=== PATIENT | male | born 1955 | race Two or more races ===

== ENCOUNTER 2024-08-11 06:10 | Day surgery (SDC) | payer OTHER ==
[2024-08-11] MEDS ORDERED: MIDAZOLAM HCL 2 MG/2 ML VIAL IV ONE (12:30)
[2024-08-11] MEDS ORDERED: fentaNYL CITRATE 50 MCG/ML AMPUL IV PUSH ONE (12:30)
[2024-08-11] MEDS ORDERED: DIPHENHYDRAMINE HCL 50 MG/ML VIAL 1ML IV ONE (12:30)
== END 2024-08-11 14:24 | disposition home or self-care (01) ==
LOC: AMB-ENDOS 06:10
PROVIDERS: ATTEND Internal Medicine
DX: D12.2 Benign neoplasm of ascending colon (principal); D12.3 Benign neoplasm of transverse colon; D12.5 Benign neoplasm of sigmoid colon; R19.5 Other fecal abnormalities; K63.89 Other specified diseases of intestine; K63.5 Polyp of colon; R63.4 Abnormal weight loss; K20.80 Other esophagitis without bleeding; R11.2 Nausea with vomiting, unspecified; K29.00 Acute gastritis without bleeding; Z88.2 Allergy status to sulfonamides; Z86.0100 Personal history of colon polyps, unspecified

== ENCOUNTER 2024-09-29 23:11 | Emergency (ER) | payer OTHER ==
[~2024-09-29] VITALS: Ht 167.6 cm; Wt 63.5 kg
[2024-09-30] MEDS ORDERED: RINGERS SOLUTION,LACTATED 1,000 ML IV STA (01:09)
[2024-09-30] MEDS ORDERED: FAMOtidine 10 MG/ML (4ML VIAL) IV PUSH STA (01:11)
[2024-09-30] MEDS ORDERED: FAMOTIDINE/PF 20 MG/2 ML VIAL ONE (01:29)
[2024-09-30 02:12] LABS: BASO % 0.4 % (0.1-1.2); EOS # 0.14 (0.04-0.54); EOS % 1.2 % (0.7-7.0); HEMATOCRIT 31.3 % (40.1-51.0); HEMOGLOBIN 11.6 g/dL (13.7-17.5); LYMPH # 1.15 (1.18-3.74); LYMPH % 10.1 % (19.3-53.1); MEAN CORPUSCULAR HEMOGLOBIN 31.8 pg (25.6-32.2); MONO # 1.24 (0.24-0.82); MONO % 10.9 % (4.7-12.5); NEUT % 76.5 % (34.0-71.1); PLATELET COUNT 312 K/uL (163-369); RED BLOOD COUNT 3.65 M/uL (4.63-6.08)
[2024-09-30 02:21] LABS: PH,URINE 6.5 (5.0-8.0); URINE APPEARANCE Cloudy; URINE BILIRRUBIN Negative (NEGATIVE); URINE BLOOD Negative; URINE COLOR Yellow; URINE GLUCOSE Negative (NEGATIVE); URINE KETONE Negative (NEGATIVE); URINE LEUKOCYTE Large; URINE NITRATE Positive; URINE PROTEIN Negative (NEGATIVE); URINE UROBILINOGEN 0.2 E.U./dl
[2024-09-30 02:24] LABS: URINE BACTERIA 9139.3 uL (0.0-1933); URINE EPITHELIAL CELLS 14.4 uL (0.0-38.8); URINE RBC 3.9 uL (0.0-20.8); URINE WBC 136.3 uL (0.0-23.2)
[2024-09-30 02:25] LABS: URINE CAST 0.58 uL (0.0-1.40)
[2024-09-30 02:35] LABS: PROTHROMBIN TIME 10.9 SECONDS (9.0-11.5)
[2024-09-30 02:38] LABS: ALBUMIN 1.4 gm/dL (3.4-5.0); BILIRUBIN TOTAL 0.24 mg/dL (0.3-1.2); CALCIUM 7.6 mg/dL (8.5-10.1); CREATININE SERUM 1.4 mg/dL (0.70-1.30); GFR 49.96; GLOBULINA 3.1 G/DL (2.4-3.5); POTASSIUM 3.71 mEq/L (3.5-5.1); TOTAL PROTEIN 4.5 gm/dL (6.4-8.2)
[2024-09-30 02:42] LABS: INFLUENZA A AG NEGATIVE (NEGATIVE)
[2024-09-30 02:43] LABS: COVID-19 AG NEGATIVE (NEGATIVE)
[2024-09-30] MEDS ORDERED: CIPROFLOXACIN IN 5 % DEXTROSE 400 MG/200 ML PIGGYBAG IV STA (04:59)
[2024-09-30] MEDS ORDERED: CIPROFLOXACIN IN 5 % DEXTROSE 400 MG/200 ML PIGGYBAG IV ONE (05:52)
== END 2024-09-30 06:49 | disposition home or self-care (01) ==
LOC: ER 23:11
DX: R53.1 Weakness (principal); R55 Syncope and collapse; E86.0 Dehydration; Z20.822 Contact with and (suspected) exposure to COVID-19; Z88.2 Allergy status to sulfonamides
CPT/HCPCS: 36415; 70450; 96365; 99284; J0744; J3490

== ENCOUNTER 2024-10-12 17:29 | Inpatient (IN) | payer OTHER ==
[~2024-10-12] VITALS: Ht 167.6 cm; Wt 74.8 kg
[2024-10-12] MEDS ORDERED: HYDRALAZINE HC100 MG PO (17:40)
[2024-10-12] MEDS ORDERED: COZAAR100 MG PO (17:41)
[2024-10-12] MEDS ORDERED: NIFEDIPINE ER30 M1 PO (17:41)
[2024-10-12] MEDS ORDERED: TOPROL XL50 M1 PO (17:41)
[2024-10-12] MEDS ORDERED: INSPRA25 MG PO (17:41)
[2024-10-12] MEDS ORDERED: CARDURA XL4 MG PO (17:42)
[2024-10-12] MEDS ORDERED: 0.9 % SODIUM CHLORIDE 1,000 ML IV SCH ×2 (18:00→22:15)
[2024-10-12 18:54] LABS: BASO % 0.4 % (0.1-1.2); EOS # 0.06 (0.04-0.54); EOS % 0.6 % (0.7-7.0); HEMATOCRIT 30.5 % (40.1-51.0); HEMOGLOBIN 11.4 g/dL (13.7-17.5); LYMPH # 0.96 (1.18-3.74); LYMPH % 9.3 % (19.3-53.1); MEAN CORPUSCULAR HEMOGLOBIN 31.8 pg (25.6-32.2); MONO # 0.84 (0.24-0.82); MONO % 8.1 % (4.7-12.5); NEUT # 8.23 (1.56-6.13); NEUT % 79.4 % (34.0-71.1); PLATELET COUNT 349 K/uL (163-369); RED BLOOD COUNT 3.59 M/uL (4.63-6.08); RED CELL DISTRIBUTION WIDTH 13.6 % (11.6-14.4)
[2024-10-12 19:15] LABS: PH,URINE 6.5 (5.0-8.0); URINE APPEARANCE Cloudy; URINE BILIRRUBIN Negative (NEGATIVE); URINE BLOOD Negative; URINE COLOR Yellow; URINE GLUCOSE Negative (NEGATIVE); URINE KETONE Negative (NEGATIVE); URINE LEUKOCYTE Large; URINE NITRATE Negative; URINE PROTEIN Trace (NEGATIVE); URINE UROBILINOGEN 0.2 E.U./dl
[2024-10-12 19:19] LABS: URINE CAST 6.92 uL (0.0-1.40); URINE EPITHELIAL CELLS 8.3 uL (0.0-38.8)
[2024-10-12 19:50] LABS: URINE BACTERIA > 9821.5 uL (0.0-1933)
[2024-10-12 19:51] LABS: URINE CRYSTALS FEW /HPF; URINE MUCUS SCANT
[2024-10-12 20:06] LABS: ALBUMIN 1.4 gm/dL (3.4-5.0); BILIRUBIN TOTAL 0.37 mg/dL (0.3-1.2); BILIRUBIN,CONJUGATED 0.13 mg/dL (0.0-0.2); BILIRUBIN,UNCONJUGATED 0.24 mg/dL (0.0-0.6); CALCIUM 7.8 mg/dL (8.5-10.1); CREATININE SERUM 2.83 mg/dL (0.70-1.30); GFR 22.17; GLOBULINA 3.3 G/DL (2.4-3.5); POTASSIUM 4.84 mEq/L (3.5-5.1); TOTAL PROTEIN 4.7 gm/dL (6.4-8.2)
[2024-10-12] MEDS ORDERED: CEFTRIAXONE SODIUM 2,000 MG in 0.9 % SODIUM CHLORIDE 100 ML IV SCH (22:07)
[2024-10-12] MEDS ORDERED: FAMOTIDINE/PF 20 MG in 0.9 % SODIUM CHLORIDE 8 ML IV PUSH SCH (22:07)
[2024-10-12] MEDS ORDERED: ACETAMINOPHEN 500 MG GEL..CAP PO PRN (22:15)
[2024-10-12] MEDS ORDERED: ONDANSETRON HCL 4 MG in 0.9 % SODIUM CHLORIDE 50 ML IV PRN (22:15)
[2024-10-13 01:50] VITALS: BP 109/59
[2024-10-13 02:26] LABS: INR 1.07; PARTIAL THROMBOPLASTIN TIME 31.7 SECONDS (22.0-34.0); PROTHROMBIN TIME 11.6 SECONDS (9.0-11.5)
[2024-10-13 04:00] VITALS: BP 112/79; O2SAT 96
[2024-10-13 08:41] VITALS: BP 108/71
[2024-10-13] MEDS ORDERED: METOPROLOL SUCCINATE 50 MG TAB.SR.24H PO SCH (09:00)
[2024-10-13] MEDS ORDERED: NIFEDIPINE 30 MG TAB.SA.OSM PO SCH (09:00)
[2024-10-13] MEDS ORDERED: ENOXAPARIN SODIUM 30 MG/0.3 ML SYRINGE SUBCUTANEO SCH (09:00)
[2024-10-13 17:50] VITALS: BP 146/80; O2SAT 96
[2024-10-13] MEDS ORDERED: FUROsemide 20 MG/2 ML VIAL IV SCH (21:00)
[2024-10-14 00:41] VITALS: BP 124/76; O2SAT 95
[2024-10-14 06:32] LABS: BASO % 0.4 % (0.1-1.2); EOS # 0.14 (0.04-0.54); EOS % 1.2 % (0.7-7.0); HEMOGLOBIN 9.9 g/dL (13.7-17.5); LYMPH # 1.38 (1.18-3.74); LYMPH % 11.9 % (19.3-53.1); MEAN CORPUSCULAR HEMOGLOBIN 31.9 pg (25.6-32.2); MONO # 1.07 (0.24-0.82); MONO % 9.2 % (4.7-12.5); NEUT % 74.4 % (34.0-71.1); PLATELET COUNT 335 K/uL (163-369); RED CELL DISTRIBUTION WIDTH 13.4 % (11.6-14.4)
[2024-10-14 06:44] LABS: HEMATOCRIT 26.5 % (40.1-51.0)
[2024-10-14 07:24] LABS: ALBUMIN 1.3 gm/dL (3.4-5.0); BILIRUBIN TOTAL 0.15 mg/dL (0.3-1.2); CALCIUM 7.6 mg/dL (8.5-10.1); CREATININE SERUM 2.45 mg/dL (0.70-1.30); GFR 26.19; GLOBULINA 2.6 G/DL (2.4-3.5); MAGNESIUM 1.6 mg/dL (1.8-2.4); PHOSPHOROUS 3.1 mg/dL (2.5-4.9); POTASSIUM 3.83 mEq/L (3.5-5.1); TOTAL PROTEIN 3.9 gm/dL (6.4-8.2)
[2024-10-14 09:48] VITALS: BP 137/86
[2024-10-14 18:30] VITALS: BP 120/75; O2SAT 98
[2024-10-14] MEDS ORDERED: MAGNESIUM SULFATE 1,000 MG in 0.9 % SODIUM CHLORIDE 50 ML IV ONE (23:00)
[2024-10-15 01:17] VITALS: BP 130/77; O2SAT 97
[2024-10-15 08:03] LABS: ALBUMIN 1.4 gm/dL (3.4-5.0); CALCIUM 7.6 mg/dL (8.5-10.1); CREATININE SERUM 2.08 mg/dL (0.70-1.30); GFR 31.64; MAGNESIUM 1.7 mg/dL (1.8-2.4); PHOSPHOROUS 2.8 mg/dL (2.5-4.9); POTASSIUM 3.35 mEq/L (3.5-5.1)
[2024-10-15 08:13] LABS: T4 TOTAL 7.4 UG/DL (4.5-12.1); TSH 1.38 uIU/mL (0.358-3.74)
[2024-10-15 09:08] LABS: FOLLICLE STIMULATING HORMONE 6.7 mIU/mL (1.5-12.4); LEUTEINIZING HORMONE 6.4 mIU/mL (1.7-8.6); PROLACTIN 18.2 ng/mL (3.6-25.2)
[2024-10-15 10:06] VITALS: BP 151/89; O2SAT 98
[2024-10-15 16:30] VITALS: BP 127/83; O2SAT 99
[2024-10-15] MEDS ORDERED: POTASSIUM CHLORIDE IN WATER 40 MEQ/100 ML PIGGYBAG IV ONE (21:30)
[2024-10-15] MEDS ORDERED: MAGNESIUM SULFATE 1,000 MG in 0.9 % SODIUM CHLORIDE 50 ML IV ONE (21:30)
[2024-10-16 01:21] VITALS: BP 97/60; O2SAT 97
[2024-10-16 07:53] LABS: ALBUMIN 1.4 gm/dL (3.4-5.0); BILIRUBIN TOTAL 0.13 mg/dL (0.3-1.2); CALCIUM 7.6 mg/dL (8.5-10.1); CREATININE SERUM 1.77 mg/dL (0.70-1.30); GFR 38.11; GLOBULINA 2.9 G/DL (2.4-3.5); MAGNESIUM 2.1 mg/dL (1.8-2.4); POTASSIUM 3.41 mEq/L (3.5-5.1); TOTAL PROTEIN 4.3 gm/dL (6.4-8.2)
[2024-10-16 09:56] VITALS: BP 120/73; O2SAT 99
[2024-10-16 11:10] LABS: URIC ACID 4.6 mg/dL (3.5-8.5)
[2024-10-16 11:59] LABS: URINE APPEARANCE Clear; URINE BILIRRUBIN Negative (NEGATIVE); URINE BLOOD Negative; URINE COLOR Yellow; URINE GLUCOSE Negative (NEGATIVE); URINE KETONE Negative (NEGATIVE); URINE LEUKOCYTE Moderate; URINE NITRATE Negative; URINE PROTEIN Negative (NEGATIVE); URINE UROBILINOGEN 0.2 E.U./dl
[2024-10-16 12:03] LABS: URINE BACTERIA 1271.6 uL (0.0-1933); URINE EPITHELIAL CELLS 11.8 uL (0.0-38.8); URINE RBC 2.3 uL (0.0-20.8); URINE WBC 158.1 uL (0.0-23.2)
[2024-10-16 17:58] VITALS: BP 126/77
[2024-10-17 00:23] VITALS: BP 148/75; O2SAT 95
[2024-10-17] MEDS ORDERED: POTASSIUM CHLORIDE IN WATER 100 ML IV SCH (01:30)
[2024-10-17 06:54] LABS: ALBUMIN 1.4 gm/dL (3.4-5.0); CALCIUM 7.6 mg/dL (8.5-10.1); CREATININE SERUM 1.68 mg/dL (0.70-1.30); GFR 40.48; MAGNESIUM 1.8 mg/dL (1.8-2.4); PHOSPHOROUS 2.9 mg/dL (2.5-4.9); POTASSIUM 3.46 mEq/L (3.5-5.1)
[2024-10-17 08:32] VITALS: BP 156/82
[2024-10-17] MEDS ORDERED: MEROPENEM 500 MG/VIAL VIAL IV NR (14:00)
[2024-10-17] MEDS ORDERED: CLOTRIMAZOLE 10 MG TROCHE MM SCH (17:00)
[2024-10-17 18:20] VITALS: BP 132/85
[2024-10-17] MEDS ORDERED: MEROPENEM 500 MG/VIAL VIAL IV SCH (21:00)
[2024-10-17] MEDS ORDERED: BISACODYL 5 MG TABLET.EC PO STA (23:07)
[2024-10-18 00:43] VITALS: BP 129/63; O2SAT 98
[2024-10-18 08:38] VITALS: BP 153/85; O2SAT 95
[2024-10-18] MEDS ORDERED: FUROsemide 20 MG/2 ML VIAL IV SCH (09:00)
[2024-10-18] MEDS ORDERED: BISACODYL 5 MG TABLET.EC PO SCH (09:00)
[2024-10-18 09:13] LABS: BASO % 1.3 % (0.1-1.2); EOS # 0.33 (0.04-0.54); EOS % 2.9 % (0.7-7.0); HEMOGLOBIN 9.2 g/dL (13.7-17.5); LYMPH # 1.17 (1.18-3.74); LYMPH % 10.3 % (19.3-53.1); MEAN CORPUSCULAR HEMOGLOBIN 31.4 pg (25.6-32.2); MONO # 1.13 (0.24-0.82); NEUT # 8.29 (1.56-6.13); NEUT % 73.4 % (34.0-71.1); PLATELET COUNT 400 K/uL (163-369); RED BLOOD COUNT 2.93 M/uL (4.63-6.08)
[2024-10-18 09:21] LABS: HEMATOCRIT 25.5 % (40.1-51.0)
[2024-10-18 09:55] LABS: ALBUMIN 1.5 gm/dL (3.4-5.0); BILIRUBIN TOTAL 0.26 mg/dL (0.3-1.2); CALCIUM 7.8 mg/dL (8.5-10.1); CREATININE SERUM 1.52 mg/dL (0.70-1.30); GFR 45.43; MAGNESIUM 1.8 mg/dL (1.8-2.4); PHOSPHOROUS 2.8 mg/dL (2.5-4.9); POTASSIUM 3.31 mEq/L (3.5-5.1); TOTAL PROTEIN 4.5 gm/dL (6.4-8.2)
[2024-10-18] MEDS ORDERED: POTASSIUM CHLORIDE 20MEQ/100ML H2O PB IV NR (14:15)
[2024-10-18 17:31] VITALS: BP 169/93
[2024-10-18] MEDS ORDERED: VITAMIN B COMPLEX 1 EACH PO NR (19:00)
[2024-10-18] MEDS ORDERED: Cyanocobalamin/Mecobalamin 1 TAB.SL SL NR (19:00)
[2024-10-18] MEDS ORDERED: SOD FERRIC GLUC COMPLX/SUCROSE 62.5 MG in 0.9 % SODIUM CHLORIDE 50 ML IV SCH (21:00)
[2024-10-19 00:23] VITALS: BP 107/72; O2SAT 98
[2024-10-19 08:21] VITALS: BP 126/65; O2SAT 97
[2024-10-19] MEDS ORDERED: Cyanocobalamin/Mecobalamin 1 TAB.SL SL SCH (09:00)
[2024-10-19] MEDS ORDERED: VITAMIN B COMPLEX 1 EACH PO SCH (09:00)
[2024-10-19 17:15] VITALS: BP 155/81
[2024-10-19 18:41] LABS: PH,URINE 7.5 (5.0-8.0); URINE APPEARANCE Cloudy; URINE BACTERIA 600.9 uL (0.0-1933); URINE BILIRRUBIN Negative (NEGATIVE); URINE BLOOD Small; URINE COLOR Yellow; URINE EPITHELIAL CELLS 2.8 uL (0.0-38.8); URINE GLUCOSE Negative (NEGATIVE); URINE KETONE Negative (NEGATIVE); URINE LEUKOCYTE Large; URINE NITRATE Negative; URINE PROTEIN 30 (NEGATIVE); URINE RBC 11.7 uL (0.0-20.8); URINE UROBILINOGEN 0.2 E.U./dl; URINE WBC 3089.9 uL (0.0-23.2)
[2024-10-19 18:44] LABS: URINE CAST 1.32 uL (0.0-1.40)
[2024-10-20 01:40] VITALS: BP 129/81
[2024-10-20 06:16] LABS: BASO % 0.9 % (0.1-1.2); EOS # 0.33 (0.04-0.54); EOS % 2.9 % (0.7-7.0); LYMPH # 1.19 (1.18-3.74); LYMPH % 10.3 % (19.3-53.1); MEAN CORPUSCULAR HEMOGLOBIN 31.7 pg (25.6-32.2); MONO # 1.02 (0.24-0.82); MONO % 8.8 % (4.7-12.5); NEUT # 8.66 (1.56-6.13); NEUT % 75.1 % (34.0-71.1); PLATELET COUNT 411 K/uL (163-369); RED BLOOD COUNT 2.81 M/uL (4.63-6.08); RED CELL DISTRIBUTION WIDTH 14.5 % (11.6-14.4)
[2024-10-20 06:43] LABS: ALBUMIN 1.6 gm/dL (3.4-5.0); BILIRUBIN TOTAL 0.28 mg/dL (0.3-1.2); CALCIUM 8.1 mg/dL (8.5-10.1); CREATININE SERUM 1.45 mg/dL (0.70-1.30); GFR 47.97; GLOBULINA 3.1 G/DL (2.4-3.5); MAGNESIUM 1.7 mg/dL (1.8-2.4); PHOSPHOROUS 2.7 mg/dL (2.5-4.9); POTASSIUM 3.06 mEq/L (3.5-5.1); TOTAL PROTEIN 4.7 gm/dL (6.4-8.2)
[2024-10-20 07:00] LABS: HEMATOCRIT 24.5 % (40.1-51.0); HEMOGLOBIN 8.9 g/dL (13.7-17.5)
[2024-10-20 09:13] VITALS: BP 130/72; O2SAT 99
[2024-10-20] MEDS ORDERED: FUROsemide 20 MG/2 ML VIAL IV SCH (12:15)
[2024-10-20] MEDS ORDERED: AMINO ACIDS/PROTEIN HYDROLYS 30 ML BLIST.PACK PO SCH (13:00)
[2024-10-20] MEDS ORDERED: POTASSIUM CHLORIDE 20MEQ/100ML H2O PB IV SCH (13:00)
[2024-10-20] MEDS ORDERED: MAGNESIUM HYDROXIDE 30 ML BLIST.PACK PO NR (16:00)
[2024-10-20] MEDS ORDERED: MINERAL OIL 30 ML BLIST.PACK PO NR (16:00)
[2024-10-20] MEDS ORDERED: MAGNESIUM SULFATE/D5W 100 ML IV NR (16:00)
[2024-10-20] MEDS ORDERED: LACTULOSE 20 G/30 ML BLIST.PACK PO NR (16:00)
[2024-10-20 17:59] VITALS: BP 163/91; O2SAT 99
[2024-10-21 02:56] VITALS: BP 140/70
[2024-10-21 09:47] VITALS: BP 171/89; O2SAT 97
[2024-10-21 12:31] LABS: BASO % 0.5 % (0.1-1.2); EOS # 0.07 (0.04-0.54); EOS % 0.6 % (0.7-7.0); HEMATOCRIT 32.5 % (40.1-51.0); HEMOGLOBIN 11.7 g/dL (13.7-17.5); LYMPH # 0.93 (1.18-3.74); LYMPH % 7.8 % (19.3-53.1); MEAN CORPUSCULAR HEMOGLOBIN 31.4 pg (25.6-32.2); MONO # 1.11 (0.24-0.82); MONO % 9.4 % (4.7-12.5); NEUT # 9.54 (1.56-6.13); NEUT % 80.4 % (34.0-71.1); PLATELET COUNT 348 K/uL (163-369); RED BLOOD COUNT 3.73 M/uL (4.63-6.08); RED CELL DISTRIBUTION WIDTH 14.7 % (11.6-14.4)
[2024-10-21 18:29] VITALS: BP 149/93
[2024-10-22 02:17] VITALS: BP 120/82; O2SAT 97
== END 2024-10-22 08:50 | disposition home or self-care (01) | DRG 689 ==
LOC: EMR PED 17:29 → ER 17:31 → MEDJ 23:20
PROVIDERS: General Practice; Internal Medicine; Internal Medicine Endocrinology, Diabetes & Metabolism; Internal Medicine Infectious Disease; ADMIT Internal Medicine; ATTEND Internal Medicine
PROC: B030ZZZ Magnetic Resonance Imaging (MRI) of Brain (ICD-10-PCS; 2024-10-12)
PROC: 8E0ZXY6 Isolation (ICD-10-PCS; 2024-10-15)
PROC: 30233N1 Transfusion of Nonautologous Red Blood Cells into Peripheral Vein, Percutaneous Approach (ICD-10-PCS; principal; 2024-10-20)
DX: N39.0 Urinary tract infection, site not specified (principal); G93.41 Metabolic encephalopathy; E87.1 Hypo-osmolality and hyponatremia; N17.9 Acute kidney failure, unspecified; B37.0 Candidal stomatitis; E86.0 Dehydration; D64.89 Other specified anemias; E87.6 Hypokalemia; C67.9 Malignant neoplasm of bladder, unspecified; M62.50 Muscle wasting and atrophy, not elsewhere classified, unspecified site; I12.9 Hypertensive chronic kidney disease with stage 1 through stage 4 chronic kidney disease, or unspecified chronic kidney disease; N18.9 Chronic kidney disease, unspecified; Z88.2 Allergy status to sulfonamides; Z92.25 Personal history of immunosuppression therapy; Z74.01 Bed confinement status; B96.20 Unspecified Escherichia coli [E. coli] as the cause of diseases classified elsewhere
CPT/HCPCS: 70544

== ENCOUNTER 2024-12-08 13:23 | Inpatient (IN) | payer OTHER ==
[~2024-12-08] VITALS: Ht 167.6 cm; Wt 60.3 kg
[~2024-12-08 13:23] MED LIST: CARDURA XL4 MG PO; COZAAR100 MG PO; HYDRALAZINE HC100 MG PO; INSPRA25 MG PO; NIFEDIPINE ER30 M1 PO; TOPROL XL50 M1 PO
--- NOTE | 2024-12-08 13:47 | NUR ---
PTE CON REFERIDO DE PASCUAL CARDIOLOGO POR ANEMIA Y SODIUM BAJO SE LE LEONID S/V Y SE ACOMODA.
[2024-12-08] MEDS ORDERED: 0.9 % SODIUM CHLORIDE 1,000 ML IV SCH ×2 (14:11→18:15)
[2024-12-08 14:53] LABS: BASO % 0.9 % (0.1-1.2); EOS # 0.14 (0.04-0.54); EOS % 1.8 % (0.7-7.0); LYMPH # 1.27 (1.18-3.74); LYMPH % 15.9 % (19.3-53.1); MEAN PLATELET VOLUME 9.80 fl (9.4-12.4); MONO # 0.90 (0.24-0.82); MONO % 11.3 % (4.7-12.5); NEUT # 5.50 (1.56-6.13); NEUT % 68.7 % (34.0-71.1); RED CELL DISTRIBUTION WIDTH 15.6 % (11.6-14.4)
--- NOTE | 2024-12-08 14:55 | NUR ---
SE ORIENTA PTE SOBRE TX MEDICO Y EL MISMO REFIERE ENTENDER Y ACEPTAR. SE CANALIZA Y SE COLECTAN MUESTRAS DE LAB
[2024-12-08 15:23] LABS: ALT/SGPT 15.0 U/L (12-78); AST/SGOT 10.0 U/L (15-37); BILIRUBIN TOTAL 0.33 mg/dL (0.3-1.2); BUN CREA RATIO 16.0 (7.0-25.0); CREATININE SERUM 1.79 mg/dL (0.70-1.30); GFR 37.62; GLOBULINA 4.1 G/DL (2.4-3.5); GLUCOSE FASTING 147.0 mg/dL (65-100); OSMOLALITY SERUM 282.0 MOSM/KG (275-295)
[2024-12-08 15:35] LABS: URINE APPEARANCE Clear; URINE BILIRRUBIN Negative (NEGATIVE); URINE BLOOD Negative; URINE COLOR Yellow; URINE GLUCOSE Negative (NEGATIVE); URINE KETONE Negative (NEGATIVE); URINE LEUKOCYTE Small; URINE NITRATE Negative; URINE PROTEIN Negative (NEGATIVE); URINE UROBILINOGEN 0.2 E.U./dl
[2024-12-08 15:39] LABS: URINE BACTERIA 2586.7 uL (0.0-1933); URINE EPITHELIAL CELLS 3.5 uL (0.0-38.8); URINE WBC 34.7 uL (0.0-23.2)
[2024-12-08 15:43] LABS: URINE CAST 0.14 uL (0.0-1.40); URINE RBC 1.1 uL (0.0-20.8)
[2024-12-08 15:50] LABS: COVID-19 AG NEGATIVE (NEGATIVE)
[2024-12-08] MEDS ORDERED: POTASSIUM CHLORIDE/NACL 0.9% 1,000 ML IV NR (16:05)
[2024-12-08] MEDS ORDERED: POTASSIUM CHLORIDE IN WATER 100 ML IV SCH (18:10)
[2024-12-08] MEDS ORDERED: FAMOTIDINE/PF 20 MG in 0.9 % SODIUM CHLORIDE 8 ML IV PUSH SCH (18:11)
[2024-12-08] MEDS ORDERED: ONDANSETRON HCL 4 MG in 0.9 % SODIUM CHLORIDE 50 ML IV PRN (18:15)
[2024-12-08] MEDS ORDERED: ACETAMINOPHEN 500 MG GEL..CAP PO PRN (18:15)
[2024-12-08 19:06] VITALS: BP 190/90
[2024-12-08] MEDS ORDERED: ENALAPRILAT DIHYDRATE 2.5 MG/2 ML VIAL IV ONE (19:45)
[2024-12-08 19:46] VITALS: BP 190/90
[2024-12-08 19:48] LABS: INR 1.1
[2024-12-08 21:45] VITALS: BP 190/92
[2024-12-08] MEDS ORDERED: AMLODIPINE BESYLATE 5 MG TABLET PO ONE (22:00)
[2024-12-08 22:21] VITALS: BP 204/97; O2SAT 98
[2024-12-09] VITALS (9 sets, daily range): BP systolic 173–197; BP diastolic 84–95; O2SAT 97–100
[2024-12-09] MEDS ORDERED: LOSARTAN POTASSIUM 25 MG TABLET PO SCH (09:00)
[2024-12-09] MEDS ORDERED: AMINO ACIDS/PROTEIN HYDROLYS 30 ML BLIST.PACK PO SCH (17:00)
[2024-12-09 22:10] LABS: BASO % 0.9 % (0.1-1.2); EOS # 0.56 (0.04-0.54); EOS % 6.2 % (0.7-7.0); LYMPH # 1.54 (1.18-3.74); LYMPH % 17.0 % (19.3-53.1); MEAN PLATELET VOLUME 9.70 fl (9.4-12.4); MONO # 1.14 (0.24-0.82); NEUT # 5.63 (1.56-6.13); NEUT % 62.0 % (34.0-71.1); RED CELL DISTRIBUTION WIDTH 15.6 % (11.6-14.4)
[2024-12-09 22:22] LABS: MONO % 12.6 % (4.7-12.5)
[2024-12-09 22:53] LABS: BUN CREA RATIO 17.0 (7.0-25.0); CREATININE SERUM 1.49 mg/dL (0.70-1.30); GFR 46.49; GLUCOSE FASTING 110.0 mg/dL (65-100); OSMOLALITY SERUM 289.0 MOSM/KG (275-295)
[2024-12-09] MEDS ORDERED: MAGNESIUM SULFATE IN WATER 50 ML IV ONE (23:45)
[2024-12-10] VITALS (9 sets, daily range): BP systolic 160–186; BP diastolic 89–95; O2SAT 97–100
[2024-12-10] MEDS ORDERED: POTASSIUM CHLORIDE IN WATER 40 MEQ/100 ML PIGGYBAG IV ONE
[2024-12-10 08:14] LABS: BASO % 0.8 % (0.1-1.2); EOS # 0.70 (0.04-0.54); EOS % 9.2 % (0.7-7.0); LYMPH # 1.33 (1.18-3.74); LYMPH % 17.4 % (19.3-53.1); MEAN PLATELET VOLUME 10.30 fl (9.4-12.4); MONO # 1.08 (0.24-0.82); NEUT # 4.36 (1.56-6.13); NEUT % 57.1 % (34.0-71.1); RED CELL DISTRIBUTION WIDTH 15.9 % (11.6-14.4)
[2024-12-10 08:18] LABS: MONO % 14.1 % (4.7-12.5)
[2024-12-10] MEDS ORDERED: LOSARTAN POTASSIUM 50 MG TABLET PO SCH (09:00)
[2024-12-10] MEDS ORDERED: LOSARTAN POTASSIUM 25 MG TABLET PO SCH (09:00)
[2024-12-10] MEDS ORDERED: CEFTRIAXONE SODIUM 1,000 MG VIAL IV SCH (09:00)
[2024-12-10 14:03] LABS: ALT/SGPT 14.0 U/L (12-78); AST/SGOT 9.0 U/L (15-37); BILIRUBIN TOTAL 0.46 mg/dL (0.3-1.2); BUN CREA RATIO 19.0 (7.0-25.0); CREATININE SERUM 1.45 mg/dL (0.70-1.30); GFR 47.97; GLOBULINA 3.8 G/DL (2.4-3.5); GLUCOSE FASTING 84.0 mg/dL (65-100); OSMOLALITY SERUM 289.0 MOSM/KG (275-295)
[2024-12-10] MEDS ORDERED: POTASSIUM CHLORIDE IN WATER 40 MEQ/100 ML PIGGYBAG IV SCH (19:44)
[2024-12-11 00:32] VITALS: O2SAT 99
[2024-12-11 04:47] VITALS: O2SAT 100
[2024-12-11 07:30] VITALS: BP 186/93
[2024-12-11 08:08] VITALS: O2SAT 100
[2024-12-11 08:14] LABS: BUN CREA RATIO 24.0 (7.0-25.0); CREATININE SERUM 1.3 mg/dL (0.70-1.30); GFR 54.42; GLUCOSE FASTING 68.0 mg/dL (65-100); OSMOLALITY SERUM 292.0 MOSM/KG (275-295)
[2024-12-11 12:54] VITALS: O2SAT 100
[2024-12-11] MEDS ORDERED: POTASSIUM CHLORIDE IN WATER 40 MEQ/100 ML PIGGYBAG IV ONE (13:15)
== END 2024-12-11 14:45 | disposition home or self-care (01) | DRG 683 ==
LOC: ER 13:40 → MEDI 18:22
PROVIDERS: Emergency Medicine; General Practice; Internal Medicine; ADMIT Internal Medicine; ATTEND Internal Medicine
PROC: 4A12X4Z Monitoring of Cardiac Electrical Activity, External Approach (ICD-10-PCS; principal; 2024-12-09)
PROC: 30233N1 Transfusion of Nonautologous Red Blood Cells into Peripheral Vein, Percutaneous Approach (ICD-10-PCS; 2024-12-09)
DX: N17.9 Acute kidney failure, unspecified (principal); N39.0 Urinary tract infection, site not specified; R63.0 Anorexia; E87.6 Hypokalemia; D64.9 Anemia, unspecified; I10 Essential (primary) hypertension

== ENCOUNTER 2025-02-04 13:44 | Inpatient (IN) | payer OTHER ==
[~2025-02-04] VITALS: Ht 167.6 cm; Wt 61.7 kg
--- NOTE | 2025-02-04 14:38 | NUR ---
PACIENTE ALERTA Y ORIENTADO X 3, ACOMPANADO DE ESPOSA. ESTA REFIERE FUE LLAMADA DE LABORATORIO PARA LLEVAR A ER POR RESULTADO DE LAB ALTERADO. REFIERE ESTELLE A PRESENTADO PRESION BAJA. 154/68 AL REALIZAR TRIAGE.
[2025-02-04] MEDS ORDERED: FAMOtidine 10 MG/ML (4ML VIAL) IV ONE (15:15)
[2025-02-04] MEDS ORDERED: 0.9 % SODIUM CHLORIDE 1,000 ML IV ONE (15:30)
[2025-02-04] MEDS ORDERED: FAMOTIDINE/PF 20 MG/2 ML VIAL ONE (15:57)
--- NOTE | 2025-02-04 16:28 | NUR ---
SE ORIENTA PTE SOBRE TX MEDICO REFIERE ENTENDER Y ACEPTAR MARYLOU MAHAJAN LEONID MUESTRAS DE LABORATORIOS Y REALIZA VENOPUNCION EN MANO DERECHA BAJO MEDIDAS ASEPTICAS TONY ORDEN MEDICA. MARYLOU CHRISTIANSON ADMINISTRA MEDICAMENTO TONY ORDEN MEDICA IV BAJO MEDIDAS ASEPTICAS. PTE ESTA UBICADO EN AREA DE OBSERVACION EN CAMA 11 CON BARANDAS ELEVADAS.
[2025-02-04 17:05] LABS: BASO % 0.5 % (0.1-1.2); EOS # 0.26 (0.04-0.54); EOS % 4.2 % (0.7-7.0); LYMPH # 1.32 (1.18-3.74); LYMPH % 21.3 % (19.3-53.1); MEAN PLATELET VOLUME 10.20 fl (9.4-12.4); MONO # 0.66 (0.24-0.82); MONO % 10.7 % (4.7-12.5); NEUT # 3.89 (1.56-6.13); NEUT % 62.8 % (34.0-71.1); RED CELL DISTRIBUTION WIDTH 15.7 % (11.6-14.4)
[2025-02-04 17:14] LABS: URINE APPEARANCE Clear; URINE BILIRRUBIN Negative (NEGATIVE); URINE BLOOD Negative; URINE COLOR Yellow; URINE GLUCOSE Negative (NEGATIVE); URINE KETONE Negative (NEGATIVE); URINE LEUKOCYTE Large; URINE NITRATE Negative; URINE PROTEIN 30 (NEGATIVE); URINE UROBILINOGEN 0.2 E.U./dl
[2025-02-04 17:17] LABS: INR 1.11
[2025-02-04 17:20] LABS: URINE BACTERIA 1871.7 uL (0.0-1933); URINE EPITHELIAL CELLS 8.4 uL (0.0-38.8); URINE RBC 6.4 uL (0.0-20.8); URINE WBC 230.7 uL (0.0-23.2)
[2025-02-04 17:28] LABS: ALT/SGPT 24.0 U/L (12-78); AST/SGOT 18.0 U/L (15-37); BILIRUBIN TOTAL 0.39 mg/dL (0.3-1.2); CREATININE SERUM 2.82 mg/dL (0.70-1.30); GFR 22.27; GLOBULINA 3.9 G/DL (2.4-3.5); GLUCOSE FASTING 117.0 mg/dL (65-100)
[2025-02-04 17:30] LABS: BUN CREA RATIO 32.0 (7.0-25.0); OSMOLALITY SERUM 300.0 MOSM/KG (275-295)
[2025-02-04 17:42] LABS: URINE CAST 1.02 uL (0.0-1.40)
[2025-02-04] MEDS ORDERED: PANTOPRAZOLE SODIUM 40 MG in 0.9 % SODIUM CHLORIDE 8 ML IV PUSH SCH (18:59)
[2025-02-04 19:10] VITALS: BP 178/76; O2SAT 99
[2025-02-04] MEDS ORDERED: SODIUM CHLORIDE 0.45 % 1,000 ML IV SCH (19:15)
[2025-02-04] MEDS ORDERED: METOPROLOL TARTRATE 50 MG TABLET PO SCH (19:26)
[2025-02-04] MEDS ORDERED: LABETALOL HCL 100 MG/20 ML ML IV PUSH PRN (19:30)
[2025-02-04] MEDS ORDERED: HEPARIN SODIUM,PORCINE 5,000 UNITS/ML VIAL SUBCUTANEO SCH (21:00)
[2025-02-04 22:00] VITALS: BP 192/87; O2SAT 100
[2025-02-04 22:42] LABS: ABG PH 7.219 (7.35-7.45)
[2025-02-04 22:43] LABS: ABG PO2 134.5 mmHg (80-100)
[2025-02-04 22:44] LABS: BICARBONATE 6.9 mmol/l (23-25); o2 21 %
[2025-02-04 22:49] VITALS: BP 192/87; O2SAT 100
[2025-02-04 23:44] VITALS: O2SAT 100
[2025-02-05] VITALS (9 sets, daily range): BP systolic 138–160; BP diastolic 77–81; O2SAT 100
[2025-02-05 08:40] LABS: ALT/SGPT 21.0 U/L (12-78); AST/SGOT 17.0 U/L (15-37); BILIRUBIN TOTAL 0.47 mg/dL (0.3-1.2); CREATININE SERUM 2.47 mg/dL (0.70-1.30); GFR 25.94; GLOBULINA 3.5 G/DL (2.4-3.5); GLUCOSE FASTING 96.0 mg/dL (65-100)
[2025-02-05 10:14] LABS: BUN CREA RATIO 35.0 (7.0-25.0); OSMOLALITY SERUM 300.0 MOSM/KG (275-295)
[2025-02-05] MEDS ORDERED: CEFTRIAXONE SODIUM 1,000 MG in DEXTROSE 5 % IN WATER 100 ML IV NR (12:00)
[2025-02-05] MEDS ORDERED: CITRIC ACID/SODIUM CITRATE 30 ML BLIST.PACK PO SCH (13:00)
[2025-02-05] MEDS ORDERED: CEFTRIAXONE SODIUM 1,000 MG VIAL ONE (19:18)
[2025-02-05] MEDS ORDERED: SODIUM BICARBONATE 50MEQ/50ML VIAL IV ONE ×3 (19:50→23:21)
[2025-02-05] MEDS ORDERED: SODIUM BICARBONATE 1 MEQ/ML DISP.SYRIN 50ML IV SCH (19:55)
[2025-02-05] MEDS ORDERED: CEFTRIAXONE SODIUM 1,000 MG in DEXTROSE 5 % IN WATER 100 ML IV SCH (21:00)
[2025-02-06] VITALS (8 sets, daily range): BP systolic 139–182; BP diastolic 69–82; O2SAT 95–100
[2025-02-06 06:50] LABS: ALT/SGPT 20.0 U/L (12-78); AST/SGOT 18.0 U/L (15-37); BILIRUBIN TOTAL 0.34 mg/dL (0.3-1.2); BUN CREA RATIO 35.0 (7.0-25.0); CREATININE SERUM 2.54 mg/dL (0.70-1.30); GFR 25.12; GLOBULINA 3.7 G/DL (2.4-3.5); GLUCOSE FASTING 91.0 mg/dL (65-100); OSMOLALITY SERUM 308.0 MOSM/KG (275-295)
[2025-02-06] MEDS ORDERED: SODIUM BICARBONATE 50MEQ/50ML VIAL IV SCH (12:30)
[2025-02-06] MEDS ORDERED: POTASSIUM CHLORIDE IN WATER 100 ML IV NR (13:30)
[2025-02-06] MEDS ORDERED: hydrALAZINE HCL 20 MG VIAL IV PRN (16:15)
[2025-02-06] MEDS ORDERED: MEROPENEM 500 MG/VIAL VIAL IV SCH (17:00)
[2025-02-06] MEDS ORDERED: NIFEDIPINE 30 MG TAB.SA.OSM PO SCH (17:00)
[2025-02-07] VITALS (9 sets, daily range): BP systolic 111–150; BP diastolic 56–77; O2SAT 98–100
[2025-02-07 06:12] LABS: BASO % 0.6 % (0.1-1.2); EOS # 0.52 (0.04-0.54); EOS % 7.7 % (0.7-7.0); LYMPH # 1.19 (1.18-3.74); LYMPH % 17.6 % (19.3-53.1); MEAN PLATELET VOLUME 11.10 fl (9.4-12.4); MONO # 0.82 (0.24-0.82); NEUT # 4.17 (1.56-6.13); NEUT % 61.9 % (34.0-71.1); RED CELL DISTRIBUTION WIDTH 14.9 % (11.6-14.4)
[2025-02-07 06:26] LABS: MONO % 12.1 % (4.7-12.5)
[2025-02-07 06:44] LABS: ALT/SGPT 16.0 U/L (12-78); AST/SGOT 13.0 U/L (15-37); BILIRUBIN TOTAL 0.39 mg/dL (0.3-1.2); CREATININE SERUM 2.61 mg/dL (0.70-1.30); GFR 24.35; GLOBULINA 3.7 G/DL (2.4-3.5); GLUCOSE FASTING 102.0 mg/dL (65-100)
[2025-02-07 08:31] LABS: BUN CREA RATIO 34.0 (7.0-25.0); OSMOLALITY SERUM 310.0 MOSM/KG (275-295)
[2025-02-07] MEDS ORDERED: METOPROLOL SUCCINATE 50 MG TAB.SR.24H PO SCH (09:00)
[2025-02-07] MEDS ORDERED: PANTOPRAZOLE SODIUM 40 MG TABLET.DR PO SCH (09:00)
[2025-02-07] MEDS ORDERED: POTASSIUM CHLORIDE IN WATER 100 ML IV NR (11:00)
[2025-02-07] MEDS ORDERED: DOXAZOSIN MESYLATE 4 MG TABLET PO SCH (21:00)
[2025-02-08] VITALS (9 sets, daily range): BP systolic 126–147; BP diastolic 62–87; O2SAT 96–100
[2025-02-08 06:57] LABS: URINE APPEARANCE Cloudy; URINE BILIRRUBIN Negative (NEGATIVE); URINE BLOOD Small; URINE COLOR Yellow; URINE GLUCOSE Negative (NEGATIVE); URINE KETONE Negative (NEGATIVE); URINE LEUKOCYTE Large; URINE NITRATE Negative; URINE PROTEIN 30 (NEGATIVE); URINE UROBILINOGEN 0.2 E.U./dl
[2025-02-08 07:00] LABS: URINE BACTERIA 3725.8 uL (0.0-1933); URINE CAST 1.46 uL (0.0-1.40); URINE EPITHELIAL CELLS 1.8 uL (0.0-38.8); URINE RBC 19.6 uL (0.0-20.8); URINE WBC 1090.2 uL (0.0-23.2)
[2025-02-08 20:10] LABS: ALT/SGPT 16.0 U/L (12-78); AST/SGOT 19.0 U/L (15-37); BILIRUBIN TOTAL 0.47 mg/dL (0.3-1.2); BUN CREA RATIO 30.0 (7.0-25.0); CREATININE SERUM 2.56 mg/dL (0.70-1.30); GFR 24.9; GLOBULINA 3.5 G/DL (2.4-3.5); GLUCOSE FASTING 112.0 mg/dL (65-100); OSMOLALITY SERUM 299.0 MOSM/KG (275-295)
[2025-02-09] VITALS (9 sets, daily range): BP systolic 80–147; BP diastolic 60–83; O2SAT 97–100
[2025-02-09 06:45] LABS: BASO % 0.8 % (0.1-1.2); EOS # 0.53 (0.04-0.54); EOS % 10.6 % (0.7-7.0); LYMPH # 1.44 (1.18-3.74); LYMPH % 28.9 % (19.3-53.1); MEAN PLATELET VOLUME 10.80 fl (9.4-12.4); MONO # 0.69 (0.24-0.82); NEUT # 2.27 (1.56-6.13); NEUT % 45.6 % (34.0-71.1); RED CELL DISTRIBUTION WIDTH 14.8 % (11.6-14.4)
[2025-02-09 07:01] LABS: MONO % 13.9 % (4.7-12.5)
[2025-02-09 07:14] LABS: ALT/SGPT 16.0 U/L (12-78); AST/SGOT 14.0 U/L (15-37); BILIRUBIN TOTAL 0.37 mg/dL (0.3-1.2); BUN CREA RATIO 32.0 (7.0-25.0); CREATININE SERUM 2.7 mg/dL (0.70-1.30); GFR 23.41; GLOBULINA 3.7 G/DL (2.4-3.5); GLUCOSE FASTING 99.0 mg/dL (65-100); OSMOLALITY SERUM 304.0 MOSM/KG (275-295)
[2025-02-09] MEDS ORDERED: SPIRONOLACTONE 25 MG TABLET PO SCH ×2 (09:13→18:00)
[2025-02-09] MEDS ORDERED: POTASSIUM CHLORIDE IN WATER 100 ML IV ONE (09:15)
[2025-02-10 00:33] VITALS: O2SAT 100
[2025-02-10 02:06] VITALS: BP 105/64; O2SAT 100
[2025-02-10 05:27] VITALS: O2SAT 100
[2025-02-10 07:39] LABS: BUN CREA RATIO 35.0 (7.0-25.0); CREATININE SERUM 2.26 mg/dL (0.70-1.30); GFR 28.75; GLUCOSE FASTING 102.0 mg/dL (65-100); OSMOLALITY SERUM 294.0 MOSM/KG (275-295)
[2025-02-10 09:07] VITALS: BP 106/58; O2SAT 98
[2025-02-10 09:55] VITALS: O2SAT 100
[2025-02-10] MEDS ORDERED: POTASSIUM CHLORIDE 20MEQ/100ML H2O PB IV NR (10:45)
[2025-02-10] MEDS ORDERED: POTASSIUM CHLORIDE 10 MEQ CAPSULE PO STA (11:56)
[2025-02-10] MEDS ORDERED: SPIRONOLACTONE25 MG PO (12:55)
[2025-02-10] MEDS ORDERED: ORACIT PO (12:58)
[2025-02-10] MEDS ORDERED: CITRIC ACID/SODIUM CITRATE 30 ML BLIST.PACK PO SCH (13:00)
[2025-02-10 13:41] VITALS: O2SAT 100
== END 2025-02-10 15:00 | disposition home or self-care (01) | DRG 682 ==
LOC: ER 13:44 → SEC-K 18:53 → SURH 18:53
PROVIDERS: General Practice; Internal Medicine; Internal Medicine Infectious Disease; ADMIT Internal Medicine; ATTEND Internal Medicine
PROC: B020ZZZ Computerized Tomography (CT Scan) of Brain (ICD-10-PCS; principal; 2025-02-04)
PROC: 4A12X4Z Monitoring of Cardiac Electrical Activity, External Approach (ICD-10-PCS; 2025-02-04)
PROC: BT4JZZZ Ultrasonography of Kidneys and Bladder (ICD-10-PCS; 2025-02-06)
PROC: BW21ZZZ Computerized Tomography (CT Scan) of Abdomen and Pelvis (ICD-10-PCS; 2025-02-07)
DX: N17.9 Acute kidney failure, unspecified (principal); A41.9 Sepsis, unspecified organism; E87.20 Acidosis, unspecified; R63.0 Anorexia; B96.5 Pseudomonas (aeruginosa) (mallei) (pseudomallei) as the cause of diseases classified elsewhere

== ENCOUNTER 2025-03-04 14:09 | Inpatient (IN) | payer OTHER ==
[~2025-03-04] VITALS: Ht 167.6 cm; Wt 63.0 kg
[~2025-03-04 14:09] MED LIST changes: +ORACIT PO; +SPIRONOLACTONE25 MG PO
--- NOTE | 2025-03-04 14:41 | NUR ---
PACIENTE ALERTA Y ORIENTADO X3 EL MISMO LLEGA POR LABORATORIO ALTERADO. S/V PRESION ELEVADA . PACIENTE EN ESPERA DE EVALUACION MEDICA.
[2025-03-04] MEDS ORDERED: 0.9 % SODIUM CHLORIDE 1,000 ML IV SCH (15:30)
[2025-03-04] MEDS ORDERED: FAMOTIDINE/PF 20 MG in 0.9 % SODIUM CHLORIDE 8 ML IV PUSH ONE (15:30)
[2025-03-04] MEDS ORDERED: ONDANSETRON HCL 4 MG in 0.9 % SODIUM CHLORIDE 50 ML IV ONE (15:30)
--- NOTE | 2025-03-04 16:17 | NUR ---
PACIENTE EVLAUADO POR QUIEN ORDENA TRATAMIENTO MEDICO, SE LE ORIENTA A PACIENTE SOBRE EL MISMO Y REFIERE ENTENDER, SE LE CANLAIZA Y SE LE COLECTAN MUESTRAS BAJO MEDIDAS ASEPTICAS, SE LE ADMINSITRAN MEDICAMENTOS Y SE LE HACE ENTREGA A PACIENTE ENVASE PARA COLECTA DE U/A.
[2025-03-04 16:18] LABS: BASO % 0.9 % (0.1-1.2); EOS # 0.22 (0.04-0.54); EOS % 4.8 % (0.7-7.0); LYMPH # 1.13 (1.18-3.74); LYMPH % 24.7 % (19.3-53.1); MEAN PLATELET VOLUME 10.10 fl (9.4-12.4); MONO # 0.56 (0.24-0.82); MONO % 12.2 % (4.7-12.5); NEUT # 2.61 (1.56-6.13); NEUT % 57.0 % (34.0-71.1); RED CELL DISTRIBUTION WIDTH 15.1 % (11.6-14.4)
[2025-03-04 16:47] LABS: INR 1.06
[2025-03-04 16:53] LABS: ALT/SGPT 18.0 U/L (12-78); AST/SGOT 15.0 U/L (15-37); BILIRUBIN TOTAL 0.33 mg/dL (0.3-1.2); BUN CREA RATIO 26.0 (7.0-25.0); CREATININE SERUM 2.18 mg/dL (0.70-1.30); GFR 29.97; GLOBULINA 3.8 G/DL (2.4-3.5); GLUCOSE FASTING 112.0 mg/dL (65-100); OSMOLALITY SERUM 286.0 MOSM/KG (275-295)
[2025-03-04 17:23] LABS: URINE APPEARANCE Clear; URINE BILIRRUBIN Negative (NEGATIVE); URINE BLOOD Negative; URINE COLOR Yellow; URINE GLUCOSE Negative (NEGATIVE); URINE KETONE Negative (NEGATIVE); URINE LEUKOCYTE Trace; URINE NITRATE Negative; URINE PROTEIN Trace (NEGATIVE); URINE UROBILINOGEN 0.2 E.U./dl
[2025-03-04 17:28] LABS: URINE BACTERIA 5676.0 uL (0.0-1933); URINE EPITHELIAL CELLS 9.6 uL (0.0-38.8); URINE RBC 4.3 uL (0.0-20.8); URINE WBC 38.9 uL (0.0-23.2)
[2025-03-04 17:36] LABS: URINE CAST 0.14 uL (0.0-1.40)
[2025-03-04] MEDS ORDERED: SODIUM BICARBONATE 50 MEQ in SODIUM CHLORIDE 0.45 % 1,000 ML IV SCH (18:45)
--- NOTE | 2025-03-04 20:01 | NUR ---
SE LE ORIENTA A PACIENTE SOBRE NUEVO TRATAMIETNO MEDICO Y REFIERE ENTENDER, SE LE COLECTAN MUESTRAS Y SE ADMINISTRAN MEDICAMENTO TONY ORDEN.
[2025-03-04] MEDS ORDERED: ACETAMINOPHEN 325 MG TABLET PO PRN (20:45)
[2025-03-04] MEDS ORDERED: ONDANSETRON HCL 4 MG in 0.9 % SODIUM CHLORIDE 50 ML IV PRN (20:45)
[2025-03-04] MEDS ORDERED: hydrALAZINE HCL 20 MG VIAL IV PRN (21:00)
[2025-03-05 06:13] VITALS: BP 160/85; O2SAT 100
[2025-03-05 08:01] LABS: BUN CREA RATIO 27.0 (7.0-25.0); CREATININE SERUM 2.01 mg/dL (0.70-1.30); GFR 32.91; GLUCOSE FASTING 93.0 mg/dL (65-100); OSMOLALITY SERUM 294.0 MOSM/KG (275-295)
[2025-03-05] MEDS ORDERED: DOXAZOSIN MESYLATE 4 MG TABLET PO SCH (09:00)
[2025-03-05] MEDS ORDERED: METOPROLOL SUCCINATE 50 MG TAB.SR.24H PO SCH (09:00)
[2025-03-05] MEDS ORDERED: PANTOPRAZOLE SODIUM 40 MG/VIAL VIAL IV SCH (09:00)
[2025-03-05 10:12] VITALS: BP 170/84; O2SAT 100
[2025-03-05] MEDS ORDERED: SPIRONOLACTONE 25 MG TABLET PO SCH (12:00)
[2025-03-05] MEDS ORDERED: NIFEDIPINE 30 MG TAB.SA.OSM PO SCH (12:00)
[2025-03-05] MEDS ORDERED: ACETAMINOPHEN 325 MG TABLET PO PRN (13:45)
[2025-03-05 19:08] VITALS: BP 184/81
[2025-03-06 01:15] VITALS: BP 117/63; O2SAT 100
[2025-03-06 06:55] LABS: ALT/SGPT 18.0 U/L (12-78); AST/SGOT 14.0 U/L (15-37); BILIRUBIN TOTAL 0.37 mg/dL (0.3-1.2); BUN CREA RATIO 26.0 (7.0-25.0); CREATININE SERUM 2.04 mg/dL (0.70-1.30); GFR 32.35; GLOBULINA 3.3 G/DL (2.4-3.5); GLUCOSE FASTING 97.0 mg/dL (65-100); OSMOLALITY SERUM 290.0 MOSM/KG (275-295)
[2025-03-06] MEDS ORDERED: CARDURA XL4 MG PO (09:03)
[2025-03-06] MEDS ORDERED: INSPRA25 MG PO (09:04)
[2025-03-06] MEDS ORDERED: TOPROL XL50 M1 PO (09:04)
[2025-03-06] MEDS ORDERED: NIFEDIPINE ER30 M1 PO (09:04)
[2025-03-06] MEDS ORDERED: HYDRALAZINE HC100 MG PO (09:04)
[2025-03-06] MEDS ORDERED: COZAAR100 MG PO (09:04)
[2025-03-06] MEDS ORDERED: SPIRONOLACTONE25 MG PO (09:05)
[2025-03-06] MEDS ORDERED: ORACIT PO (09:05)
[2025-03-06 09:41] VITALS: BP 162/78; O2SAT 99
== END 2025-03-06 10:30 | disposition home or self-care (01) | DRG 683 ==
LOC: ER 14:09 → MEDJ 22:21
PROVIDERS: General Practice; Internal Medicine; ADMIT Internal Medicine; ATTEND Internal Medicine
PROC: BW21ZZZ Computerized Tomography (CT Scan) of Abdomen and Pelvis (ICD-10-PCS; principal; 2025-03-04)
DX: N17.8 Other acute kidney failure (principal); E87.20 Acidosis, unspecified; N18.4 Chronic kidney disease, stage 4 (severe)

== ENCOUNTER 2025-03-17 14:42 | Inpatient (IN) | payer OTHER ==
[~2025-03-17] VITALS: Ht 167.6 cm; Wt 61.7 kg
--- NOTE | 2025-03-17 17:09 | NUR ---
PACIENTE ALERTA Y ORIENTADO X3 REFIERE VENIR POR ORDEN DE PASCUAL MEDICO DE CABEZERA POR HEMOGLOBINA BAJA. SE LEONID S/V Y SE UBICA EN OFICINA MEDICA DE DR. SANCHEZ.
[2025-03-17] MEDS ORDERED: ACETAMINOPHEN 500 MG GEL..CAP PO ONE ×2 (17:15→17:47)
[2025-03-17] MEDS ORDERED: 0.9 % SODIUM CHLORIDE 1,000 ML IV ONE (17:15)
[2025-03-17] MEDS ORDERED: FAMOTIDINE/PF 20 MG in 0.9 % SODIUM CHLORIDE 8 ML IV PUSH ONE (17:15)
[2025-03-17] MEDS ORDERED: CEFTRIAXONE SODIUM 2,000 MG in 0.9 % SODIUM CHLORIDE 100 ML IV ONE (17:15)
[2025-03-17] MEDS ORDERED: CEFTRIAXONE SODIUM 2,000 MG VIAL ONE (17:47)
--- NOTE | 2025-03-17 17:47 | NUR ---
SE REALIZA LAB Y SE ADMINISTRA TX TONY ORFDEN MEDICA BAJO MEDIDAS ASEPTICAS. SE ORIENTA PTE QUIEN REFIER ENTENDER Y ACEPTAR
[2025-03-17] MEDS ORDERED: FAMOTIDINE/PF 20 MG/2 ML VIAL ONE (17:48)
[2025-03-17 17:56] LABS: BASO % 0.2 % (0.1-1.2); EOS # 0.07 (0.04-0.54); EOS % 0.6 % (0.7-7.0); LYMPH # 0.85 (1.18-3.74); LYMPH % 7.3 % (19.3-53.1); MEAN PLATELET VOLUME 10.00 fl (9.4-12.4); MONO # 0.91 (0.24-0.82); MONO % 7.8 % (4.7-12.5); NEUT # 9.67 (1.56-6.13); NEUT % 82.6 % (34.0-71.1); RED CELL DISTRIBUTION WIDTH 14.8 % (11.6-14.4)
[2025-03-17 17:58] LABS: ERYTHROCYTE SEDIMENTATION RATE 107 mm/hr (0-20)
[2025-03-17 18:14] LABS: INR 1.06
[2025-03-17 18:18] LABS: ALT/SGPT 19.0 U/L (12-78); AST/SGOT 11.0 U/L (15-37); BILIRUBIN TOTAL 0.31 mg/dL (0.3-1.2); BUN CREA RATIO 20.0 (7.0-25.0); CREATININE SERUM 2.81 mg/dL (0.70-1.30); GFR 22.36; GLOBULINA 4.4 G/DL (2.4-3.5); GLUCOSE FASTING 151.0 mg/dL (65-100); OSMOLALITY SERUM 281.0 MOSM/KG (275-295)
[2025-03-17 19:09] LABS: URINE APPEARANCE Clear; URINE BILIRRUBIN Negative (NEGATIVE); URINE BLOOD Large; URINE COLOR Yellow; URINE GLUCOSE Negative (NEGATIVE); URINE KETONE Negative (NEGATIVE); URINE LEUKOCYTE Large; URINE NITRATE Negative; URINE PROTEIN Trace (NEGATIVE); URINE UROBILINOGEN 0.2 E.U./dl
[2025-03-17 19:10] LABS: URINE EPITHELIAL CELLS 9.5 uL (0.0-38.8); URINE RBC 15.5 uL (0.0-20.8); URINE WBC 389.3 uL (0.0-23.2)
[2025-03-17] MEDS ORDERED: SODIUM BICARBONATE 100 MEQ in SODIUM CHLORIDE 0.45 % 1,000 ML IV SCH (19:15)
[2025-03-17] MEDS ORDERED: CITRIC ACID/SODIUM CITRATE 30 ML BLIST.PACK PO ONE (19:15)
[2025-03-17 19:16] LABS: URINE BACTERIA > 9821.5 uL (0.0-1933); URINE CAST 0.87 uL (0.0-1.40)
[2025-03-17] MEDS ORDERED: 0.9 % SODIUM CHLORIDE 1,000 ML IV SCH (21:30)
[2025-03-17] MEDS ORDERED: ACETAMINOPHEN 325 MG TABLET PO PRN (21:30)
[2025-03-17] MEDS ORDERED: ONDANSETRON HCL 4 MG in 0.9 % SODIUM CHLORIDE 50 ML IV PRN (21:30)
[2025-03-18] MEDS ORDERED: MEROPENEM 500 MG/VIAL VIAL IV SCH ×2 (01:00→09:00)
[2025-03-18] MEDS ORDERED: SODIUM BICARBONATE 1 MEQ/ML DISP.SYRIN 50ML IV ONE (01:10)
[2025-03-18] MEDS ORDERED: CITRIC ACID/SODIUM CITRATE 30 ML BLIST.PACK PO ONE (01:10)
[2025-03-18 03:21] LABS: RH POSITIVE
[2025-03-18 08:47] VITALS: BP 157/68; O2SAT 100
[2025-03-18] MEDS ORDERED: METOPROLOL SUCCINATE 50 MG TAB.SR.24H PO SCH (09:00)
[2025-03-18] MEDS ORDERED: NIFEDIPINE 30 MG TAB.SA.OSM PO SCH (09:00)
[2025-03-18] MEDS ORDERED: LOSARTAN POTASSIUM 50 MG TABLET PO SCH (09:00)
[2025-03-18] MEDS ORDERED: DOXAZOSIN MESYLATE 4 MG TABLET PO SCH (09:00)
[2025-03-18] MEDS ORDERED: SODIUM BICARBONATE 150 MEQ in DEXTROSE 5 % IN WATER 1,000 ML IV SCH (09:00)
[2025-03-18] MEDS ORDERED: CITRIC ACID/SODIUM CITRATE 30 ML BLIST.PACK PO SCH (09:01)
[2025-03-18] MEDS ORDERED: PANTOPRAZOLE SODIUM 40 MG/VIAL VIAL IV SCH (12:00)
[2025-03-18 15:32] VITALS: BP 117/66; O2SAT 100
[2025-03-18] MEDS ORDERED: SPIRONOLACTONE 25 MG TABLET PO SCH (17:00)
[2025-03-18] MEDS ORDERED: SPIRONOLACTONE 50 MG TABLET PO SCH (21:00)
[2025-03-19 04:28] VITALS: BP 128/73; O2SAT 100
[2025-03-19] MEDS ORDERED: DEXTROSE 5%-WATER 1,000ML IV.SOLN ONE (07:40)
[2025-03-19] MEDS ORDERED: SODIUM BICARBONATE 1 MEQ/ML DISP.SYRIN 50ML IV ONE (08:34)
[2025-03-19 08:49] VITALS: BP 168/82; O2SAT 100
[2025-03-19 15:02] LABS: BASO % 0.4 % (0.1-1.2); EOS # 0.30 (0.04-0.54); EOS % 3.3 % (0.7-7.0); LYMPH # 0.93 (1.18-3.74); LYMPH % 10.2 % (19.3-53.1); MEAN PLATELET VOLUME 9.70 fl (9.4-12.4); MONO # 0.79 (0.24-0.82); MONO % 8.6 % (4.7-12.5); NEUT # 6.94 (1.56-6.13); NEUT % 75.8 % (34.0-71.1); RED CELL DISTRIBUTION WIDTH 14.6 % (11.6-14.4)
[2025-03-19 15:14] LABS: ALT/SGPT 13.0 U/L (12-78); AST/SGOT 13.0 U/L (15-37); BILIRUBIN TOTAL 0.33 mg/dL (0.3-1.2); BUN CREA RATIO 19.0 (7.0-25.0); CREATININE SERUM 2.42 mg/dL (0.70-1.30); GFR 26.56; GLOBULINA 3.9 G/DL (2.4-3.5); GLUCOSE FASTING 158.0 mg/dL (65-100); OSMOLALITY SERUM 285.0 MOSM/KG (275-295)
[2025-03-19 17:57] VITALS: BP 109/55
[2025-03-19] MEDS ORDERED: POTASSIUM CHLORIDE IN WATER 40 MEQ/100 ML PIGGYBAG IV ONE (21:30)
[2025-03-20 02:47] VITALS: BP 150/67; O2SAT 99
[2025-03-20 06:47] LABS: ALT/SGPT 15.0 U/L (12-78); AST/SGOT 9.0 U/L (15-37); BILIRUBIN TOTAL 0.39 mg/dL (0.3-1.2); BUN CREA RATIO 21.0 (7.0-25.0); CREATININE SERUM 2.43 mg/dL (0.70-1.30); GFR 26.44; GLOBULINA 3.4 G/DL (2.4-3.5); GLUCOSE FASTING 81.0 mg/dL (65-100); OSMOLALITY SERUM 292.0 MOSM/KG (275-295)
[2025-03-20 09:08] VITALS: BP 146/84; O2SAT 97
[2025-03-20 17:31] LABS: URINE APPEARANCE Clear; URINE BILIRRUBIN Negative (NEGATIVE); URINE BLOOD Negative; URINE COLOR Yellow; URINE GLUCOSE Negative (NEGATIVE); URINE KETONE Negative (NEGATIVE); URINE LEUKOCYTE Moderate; URINE NITRATE Positive; URINE PROTEIN Trace (NEGATIVE); URINE UROBILINOGEN 0.2 E.U./dl
[2025-03-20 17:34] LABS: URINE BACTERIA 6215.4 uL (0.0-1933); URINE EPITHELIAL CELLS 4.1 uL (0.0-38.8); URINE RBC 10.2 uL (0.0-20.8); URINE WBC 42.1 uL (0.0-23.2)
[2025-03-20 18:00] LABS: URINE CAST 0.29 uL (0.0-1.40)
[2025-03-20 20:46] VITALS: BP 117/52; O2SAT 100
[2025-03-21 01:02] VITALS: BP 135/65; O2SAT 97
[2025-03-21 10:02] VITALS: BP 166/78; O2SAT 100
[2025-03-21] MEDS ORDERED: AMINO ACIDS/PROTEIN HYDROLYS 30 ML BLIST.PACK PO SCH (17:00)
[2025-03-21 18:52] VITALS: BP 120/70; O2SAT 100
[2025-03-22 03:25] VITALS: BP 155/78; O2SAT 98
[2025-03-22 06:26] LABS: BASO % 0.6 % (0.1-1.2); EOS # 0.36 (0.04-0.54); EOS % 7.3 % (0.7-7.0); LYMPH # 0.90 (1.18-3.74); LYMPH % 18.4 % (19.3-53.1); MEAN PLATELET VOLUME 9.70 fl (9.4-12.4); MONO # 0.98 (0.24-0.82); NEUT # 2.52 (1.56-6.13); NEUT % 51.5 % (34.0-71.1); RED CELL DISTRIBUTION WIDTH 14.1 % (11.6-14.4)
[2025-03-22 06:46] LABS: MONO % 20.0 % (4.7-12.5)
[2025-03-22 06:55] LABS: ALT/SGPT 17.0 U/L (12-78); AST/SGOT 11.0 U/L (15-37); BILIRUBIN TOTAL 0.34 mg/dL (0.3-1.2); BUN CREA RATIO 26.0 (7.0-25.0); CREATININE SERUM 2.16 mg/dL (0.70-1.30); GFR 30.29; GLOBULINA 3.3 G/DL (2.4-3.5); GLUCOSE FASTING 78.0 mg/dL (65-100); OSMOLALITY SERUM 283.0 MOSM/KG (275-295)
[2025-03-22] MEDS ORDERED: PANTOPRAZOLE SODIUM 40 MG TABLET.DR PO SCH (09:00)
[2025-03-22] MEDS ORDERED: RINGERS SOLUTION,LACTATED 1,000 ML IV SCH (10:30)
[2025-03-22 10:38] VITALS: BP 164/73; O2SAT 96
[2025-03-22 20:02] VITALS: BP 106/50; O2SAT 98
[2025-03-23 03:12] VITALS: BP 147/75; O2SAT 98
[2025-03-23 06:28] LABS: BASO % 0.8 % (0.1-1.2); EOS # 0.30 (0.04-0.54); EOS % 7.9 % (0.7-7.0); LYMPH # 0.98 (1.18-3.74); LYMPH % 25.9 % (19.3-53.1); MEAN PLATELET VOLUME 9.70 fl (9.4-12.4); MONO # 0.76 (0.24-0.82); NEUT # 1.63 (1.56-6.13); NEUT % 43.2 % (34.0-71.1); RED CELL DISTRIBUTION WIDTH 14.1 % (11.6-14.4)
[2025-03-23 06:59] LABS: MONO % 20.1 % (4.7-12.5)
[2025-03-23 07:04] LABS: ALT/SGPT 19.0 U/L (12-78); AST/SGOT 11.0 U/L (15-37); BILIRUBIN TOTAL 0.25 mg/dL (0.3-1.2); BUN CREA RATIO 35.0 (7.0-25.0); CREATININE SERUM 1.85 mg/dL (0.70-1.30); GFR 36.22; GLOBULINA 3.1 G/DL (2.4-3.5); GLUCOSE FASTING 74.0 mg/dL (65-100); OSMOLALITY SERUM 284.0 MOSM/KG (275-295)
[2025-03-23] MEDS ORDERED: SODIUM BICARBONATE 325 MG TABLET PO SCH (09:00)
[2025-03-23 10:09] VITALS: BP 136/67; O2SAT 98
[2025-03-23] MEDS ORDERED: HYDRALAZINE HC100 MG PO (11:08)
[2025-03-23] MEDS ORDERED: INSPRA25 MG PO (11:08)
[2025-03-23] MEDS ORDERED: DOXAZOSIN MESYLA4 MG PO (11:08)
[2025-03-23] MEDS ORDERED: TOPROL XL50 M1 PO (11:09)
[2025-03-23] MEDS ORDERED: PROTEINEX-18 LI30 ML PO (11:09)
[2025-03-23] MEDS ORDERED: NIFEDIPINE ER30 M1 PO (11:09)
[2025-03-23] MEDS ORDERED: COZAAR100 MG PO (11:09)
[2025-03-23] MEDS ORDERED: ORACIT PO (11:09)
[2025-03-23] MEDS ORDERED: PANTOPRAZOLE SO40 MG PO (11:09)
[2025-03-23] MEDS ORDERED: SPIRONOLACTONE25 MG PO (11:09)
== END 2025-03-23 13:57 | disposition home or self-care (01) | DRG 812 ==
LOC: ER 14:43 → SEC-K 22:02 → MEDJ 03-18 15:32
PROVIDERS: General Practice; Internal Medicine Infectious Disease; Internal Medicine Nephrology; ADMIT Internal Medicine; ATTEND Internal Medicine
PROC: 30233N1 Transfusion of Nonautologous Red Blood Cells into Peripheral Vein, Percutaneous Approach (ICD-10-PCS; principal; 2025-03-18)
DX: D64.89 Other specified anemias (principal); N39.0 Urinary tract infection, site not specified; N17.9 Acute kidney failure, unspecified; E87.22 Chronic metabolic acidosis; I12.9 Hypertensive chronic kidney disease with stage 1 through stage 4 chronic kidney disease, or unspecified chronic kidney disease; N18.9 Chronic kidney disease, unspecified; D63.1 Anemia in chronic kidney disease; B96.5 Pseudomonas (aeruginosa) (mallei) (pseudomallei) as the cause of diseases classified elsewhere; Z88.2 Allergy status to sulfonamides; Z87.891 Personal history of nicotine dependence; Z85.51 Personal history of malignant neoplasm of bladder

== ENCOUNTER 2025-04-06 03:26 | Inpatient (IN) | payer OTHER ==
[~2025-04-06] VITALS: Ht 167.6 cm; Wt 60.8 kg
[~2025-04-06 03:26] MED LIST changes: +DOXAZOSIN MESYLA4 MG PO; +PANTOPRAZOLE SO40 MG PO; +PROTEINEX-18 LI30 ML PO
[2025-04-06] MEDS ORDERED: PROMETHAZINE HCL 50 MG/ML AMPUL IM STA (04:43)
[2025-04-06] MEDS ORDERED: FAMOTIDINE/PF 20 MG/2 ML VIAL IV PUSH STA (04:43)
[2025-04-06] MEDS ORDERED: 0.9 % SODIUM CHLORIDE 1,000 ML IV ONE (04:45)
[2025-04-06 05:28] LABS: BASO % 0.4 % (0.1-1.2); EOS # 0.27 (0.04-0.54); EOS % 3.9 % (0.7-7.0); LYMPH # 0.98 (1.18-3.74); LYMPH % 14.3 % (19.3-53.1); MEAN PLATELET VOLUME 10.30 fl (9.4-12.4); MONO # 0.81 (0.24-0.82); MONO % 11.8 % (4.7-12.5); NEUT # 4.73 (1.56-6.13); NEUT % 69.2 % (34.0-71.1); RED CELL DISTRIBUTION WIDTH 13.7 % (11.6-14.4)
[2025-04-06 05:44] LABS: ALT/SGPT 18.0 U/L (12-78); AST/SGOT 16.0 U/L (15-37); BILIRUBIN TOTAL 0.45 mg/dL (0.3-1.2); BUN CREA RATIO 22.0 (7.0-25.0); CREATININE SERUM 3.02 mg/dL (0.70-1.30); GFR 20.57; GLOBULINA 3.6 G/DL (2.4-3.5); GLUCOSE FASTING 126.0 mg/dL (65-100); OSMOLALITY SERUM 296.0 MOSM/KG (275-295)
[2025-04-06 05:47] LABS: URINE APPEARANCE Clear; URINE BILIRRUBIN Negative (NEGATIVE); URINE BLOOD Negative; URINE COLOR Yellow; URINE GLUCOSE Negative (NEGATIVE); URINE KETONE Negative (NEGATIVE); URINE LEUKOCYTE Moderate; URINE NITRATE Negative; URINE PROTEIN Trace (NEGATIVE); URINE UROBILINOGEN 0.2 E.U./dl
[2025-04-06 06:01] LABS: URINE EPITHELIAL CELLS 5.8 uL (0.0-38.8); URINE RBC 2.0 uL (0.0-20.8); URINE WBC 92.6 uL (0.0-23.2)
[2025-04-06 06:01] LABS: INR 1.05
[2025-04-06 06:04] LABS: URINE CAST 0.29 uL (0.0-1.40)
[2025-04-06] MEDS ORDERED: CHOLESTYRAMINE/ASPARTAME LIGHT 4 G/PKT PACKET PO ONE (16:00)
[2025-04-06] MEDS ORDERED: CIPROFLOXACIN IN 5 % DEXTROSE 400 MG/200 ML PIGGYBAG IV ONE (16:00)
[2025-04-06] MEDS ORDERED: 0.9 % SODIUM CHLORIDE 1,000 ML IV SCH (17:00)
[2025-04-06] MEDS ORDERED: PIPERACILLIN/TAZOBACTAM SODIUM 2.25 GM VIAL IV SCH (18:00)
[2025-04-06] MEDS ORDERED: CIPROFLOXACIN IN 5 % DEXTROSE 200 ML IV SCH ×2 (21:00→23:01)
[2025-04-06] MEDS ORDERED: LACTOBACILLUS ACIDOPHILUS 1 CAP CAP PO SCH (23:01)
[2025-04-06] MEDS ORDERED: ENOXAPARIN SODIUM 40 MG/0.4 ML SYRINGE SUBCUTANEO SCH (23:02)
[2025-04-07 06:48] LABS: BASO % 0.4 % (0.1-1.2); EOS # 0.53 (0.04-0.54); EOS % 10.9 % (0.7-7.0); LYMPH # 1.08 (1.18-3.74); LYMPH % 22.2 % (19.3-53.1); MEAN PLATELET VOLUME 10.90 fl (9.4-12.4); MONO # 0.61 (0.24-0.82); NEUT # 2.61 (1.56-6.13); NEUT % 53.7 % (34.0-71.1); RED CELL DISTRIBUTION WIDTH 14.1 % (11.6-14.4)
[2025-04-07 07:03] LABS: MONO % 12.6 % (4.7-12.5)
[2025-04-07 07:19] LABS: INR 1.12
[2025-04-07 07:24] LABS: BUN CREA RATIO 24.0 (7.0-25.0); CREATININE SERUM 2.45 mg/dL (0.70-1.30); GFR 26.19; GLUCOSE FASTING 80.0 mg/dL (65-100); OSMOLALITY SERUM 297.0 MOSM/KG (275-295)
[2025-04-07 09:43] VITALS: BP 168/76; O2SAT 99
[2025-04-07] MEDS ORDERED: METOCLOPRAMIDE HCL 5 MG/ML VIAL IV SCH (13:00)
[2025-04-07 18:12] VITALS: BP 168/79
[2025-04-08 03:33] VITALS: BP 137/62; O2SAT 98
[2025-04-08 05:38] LABS: BASO % 0.6 % (0.1-1.2); EOS # 0.58 (0.04-0.54); EOS % 11.9 % (0.7-7.0); LYMPH # 1.01 (1.18-3.74); LYMPH % 20.7 % (19.3-53.1); MEAN PLATELET VOLUME 11.10 fl (9.4-12.4); MONO # 0.60 (0.24-0.82); NEUT # 2.63 (1.56-6.13); NEUT % 54.1 % (34.0-71.1); RED CELL DISTRIBUTION WIDTH 13.7 % (11.6-14.4)
[2025-04-08 05:42] LABS: BUN CREA RATIO 25.0 (7.0-25.0); CREATININE SERUM 2.26 mg/dL (0.70-1.30); GFR 28.75; GLUCOSE FASTING 72.0 mg/dL (65-100); OSMOLALITY SERUM 301.0 MOSM/KG (275-295)
[2025-04-08 08:34] LABS: MONO % 12.3 % (4.7-12.5)
[2025-04-08 09:11] VITALS: BP 154/75; O2SAT 97
[2025-04-08 18:43] VITALS: BP 95/60
[2025-04-09 02:51] VITALS: BP 164/76; O2SAT 98
[2025-04-09 09:16] VITALS: BP 160/82; O2SAT 100
[2025-04-09 18:36] VITALS: BP 171/76
[2025-04-10 02:23] VITALS: BP 174/82; O2SAT 98
[2025-04-10 09:16] VITALS: BP 160/90; O2SAT 98
[2025-04-10] MEDS ORDERED: hydrALAZINE HCL 20 MG VIAL IV STA (13:31)
[2025-04-10] MEDS ORDERED: hydrALAZINE HCL 20 MG VIAL IV PRN (13:45)
[2025-04-10] MEDS ORDERED: CEFTRIAXONE SODIUM 1,000 MG VIAL IV NR (17:45)
[2025-04-10] MEDS ORDERED: NIFEDIPINE 30 MG TAB.SA.OSM PO NR (17:45)
[2025-04-10 21:27] VITALS: BP 149/67
[2025-04-10 21:39] LABS: BASO % 0.5 % (0.1-1.2); EOS # 0.48 (0.04-0.54); EOS % 8.7 % (0.7-7.0); LYMPH # 1.13 (1.18-3.74); LYMPH % 20.5 % (19.3-53.1); MEAN PLATELET VOLUME 10.30 fl (9.4-12.4); MONO # 0.86 (0.24-0.82); NEUT # 3.00 (1.56-6.13); NEUT % 54.3 % (34.0-71.1)
[2025-04-10 21:49] LABS: MONO % 15.6 % (4.7-12.5); RED CELL DISTRIBUTION WIDTH 17.7 % (11.6-14.4)
[2025-04-11 04:14] VITALS: BP 130/55; O2SAT 96
[2025-04-11 08:00] VITALS: BP 134/69; O2SAT 98
[2025-04-11] MEDS ORDERED: NIFEDIPINE 30 MG TAB.SA.OSM PO SCH (09:00)
[2025-04-11] MEDS ORDERED: ENOXAPARIN SODIUM 30 MG/0.3 ML SYRINGE SUBCUTANEO SCH (09:00)
[2025-04-11] MEDS ORDERED: CEFTRIAXONE SODIUM 1,000 MG VIAL IV SCH (09:00)
[2025-04-11 12:21] LABS: URINE APPEARANCE Clear; URINE BILIRRUBIN Negative (NEGATIVE); URINE BLOOD Negative; URINE COLOR Yellow; URINE GLUCOSE Negative (NEGATIVE); URINE KETONE Negative (NEGATIVE); URINE LEUKOCYTE Small; URINE NITRATE Positive; URINE PROTEIN Negative (NEGATIVE); URINE UROBILINOGEN 0.2 E.U./dl
[2025-04-11 12:24] LABS: URINE BACTERIA 362.3 uL (0.0-1933); URINE EPITHELIAL CELLS 3.3 uL (0.0-38.8); URINE WBC 20.8 uL (0.0-23.2)
[2025-04-11 12:55] LABS: URINE CAST 0.14 uL (0.0-1.40); URINE RBC 1.6 uL (0.0-20.8)
[2025-04-11] MEDS ORDERED: METOCLOPRAMIDE HCL 10 MG TABLET PO SCH (16:00)
[2025-04-11] MEDS ORDERED: ORPHENADRINE CITRATE 30 MG/ML AMPUL IV SCH (17:00)
[2025-04-11 18:43] VITALS: BP 128/52; O2SAT 98
[2025-04-12 02:52] VITALS: BP 142/72; O2SAT 100
[2025-04-12 06:25] LABS: BASO % 0.6 % (0.1-1.2); EOS # 0.68 (0.04-0.54); LYMPH # 0.90 (1.18-3.74); LYMPH % 27.2 % (19.3-53.1); MEAN PLATELET VOLUME 11.50 fl (9.4-12.4); MONO # 0.45 (0.24-0.82); NEUT # 1.25 (1.56-6.13); NEUT % 37.8 % (34.0-71.1); RED CELL DISTRIBUTION WIDTH 17.4 % (11.6-14.4)
[2025-04-12 07:10] LABS: ALT/SGPT 29.0 U/L (12-78); AST/SGOT 31.0 U/L (15-37); BILIRUBIN TOTAL 0.43 mg/dL (0.3-1.2); BUN CREA RATIO 14.0 (7.0-25.0); CREATININE SERUM 2.23 mg/dL (0.70-1.30); GFR 29.19; GLOBULINA 3.0 G/DL (2.4-3.5); GLUCOSE FASTING 79.0 mg/dL (65-100); OSMOLALITY SERUM 294.0 MOSM/KG (275-295)
[2025-04-12 07:22] LABS: EOS % 20.5 % (0.7-7.0); EOSINOPHIL MAN 23.0 %; LYMPHOCYTE MAN 32.0 %; MONO % 13.6 % (4.7-12.5); MONOCYTE MAN 4.0 %; NEUTROPHILS MAN 40.0 %
[2025-04-12 08:00] VITALS: BP 150/81; O2SAT 97
[2025-04-12] MEDS ORDERED: CEFTRIAXONE SODIUM 1,000 MG VIAL IV SCH (09:00)
[2025-04-12] MEDS ORDERED: NORFLEX100MG PO (16:58)
== END 2025-04-12 17:39 | disposition home or self-care (01) | DRG 389 ==
LOC: ER 03:27 → MEDJ 23:11
PROVIDERS: General Practice; Internal Medicine; ADMIT Internal Medicine; ATTEND Internal Medicine
PROC: BW21ZZZ Computerized Tomography (CT Scan) of Abdomen and Pelvis (ICD-10-PCS; principal; 2025-04-06)
PROC: 30233N1 Transfusion of Nonautologous Red Blood Cells into Peripheral Vein, Percutaneous Approach (ICD-10-PCS; 2025-04-09)
DX: K56.609 Unspecified intestinal obstruction, unspecified as to partial versus complete obstruction (principal); N17.9 Acute kidney failure, unspecified; N39.0 Urinary tract infection, site not specified; D64.9 Anemia, unspecified